=== PATIENT | male | born 1955 | race Caucasian/White ===

== ENCOUNTER → 2016-10-13 | Outpatient (CLI) | payer OTHER ==
[~2016-10-13] MED LIST: BAYER ASPIRIN325 M1 PO; NO MEDICATIONS
--- NOTE | ~2016-10-13 | US37 ---
[facility] A Service of [facility] RADIOLOGY TEXT RESULTS PATIENT: KANDI FORD LOCATION: CNIV : 55 UNIT #: [id number] AGE: [address]: Brown Boyd MD SEX: M ORDER DR: [id number] [facility] [address] [place], [place] [address] [id number] O MR#: [id number] Acc #: [id number] NAME: KANDI FORD : 1955 SEX: M STUDY DATE/TIME: 10/13/2016 8:22 UNIT: CNIV ROOM: STUDY DESCRIPTION: US Carotid W/Doppler Bilateral Attending Physician: Brown Boyd M.D. Referring Physician: Brown Boyd M.D. Ordering Physician: Brown Boyd M.D. Primary Care Physician: Primary Care Physician No MEDICAL IMAGING REPORT This report is preliminary unless electronic signature is present EXAM Bilateral carotid duplex HISTORY Carotid bruit. FINDINGS Duplex imaging of the carotid arteries was performed. The right common carotid artery is patent. No significant plaque is seen in the right internal or external carotid arteries. Velocity in the right common carotid is 102, internal is 109 and external is 125 cm/sec. Right ICA/CCA ratio is 1.1. On the left side, the common carotid artery is patent. Minimal plaque is seen in the left carotid bulb. Velocity in the left common carotid is 97, internal is 102, external is 124 cm/sec. Left ICA/CCA ratio is 1.3. Antegrade flow is seen in the right and left vertebral arteries. IMPRESSION No significant plaque or stenosis is seen in the right internal carotid artery. Minimal plaque is seen in the left internal carotid artery bulb. Antegrade flow is seen in the right and left vertebral arteries. Dictated by... Nabil Harris M.D. THIS IS AN ELECTRONICALLY VERIFIED REPORT Nabil Harris M.D. at 10/16/2016 5:16 PM /gela [facility] A Service of [facility] RADIOLOGY TEXT RESULTS PATIENT: KANDI FORD LOCATION: [facility] : 55 UNIT #: [id number] AGE: [address]: Brown Boyd MD SEX: M ORDER DR: TD: 10/13/2016 23:44 JOB #: [id number] MEDICAL IMAGING REPORT Page 1 of 1 COPY
== END | disposition home or self-care (01) ==
LOC: CNIV 08:04
DX: R09.89 Other specified symptoms and signs involving the circulatory and respiratory systems (principal)
CPT/HCPCS: 93880